=== PATIENT | female | born 1995 | race Caucasian/White ===

== ENCOUNTER 2020-12-24 16:00 | Emergency (ER) | payer OTHER ==
[~2020-12-24] VITALS: Ht 162.6 cm; Wt 72.6 kg
[~2020-12-24 16:00] MED LIST: DULCOLAX STOOL100 MG PO; SEPTRA DS TABLE1 TAB PO
[2020-12-24] MEDS ORDERED: LEVSIN/SL0.125 MG SL (16:09)
== END 2020-12-24 21:17 | disposition home or self-care (01) ==
LOC: ER 16:00
DX: K59.09 Other constipation (principal); R10.84 Generalized abdominal pain

== ENCOUNTER 2022-10-29 15:25 | Emergency (ER) | payer OTHER ==
[~2022-10-29] VITALS: Ht 162.6 cm; Wt 78.5 kg
[~2022-10-29 15:25] MED LIST changes: +LEVSIN/SL0.125 MG SL
== END 2022-10-29 22:09 | disposition home or self-care (01) ==
LOC: ER 15:25
DX: S09.8XXA Other specified injuries of head, initial encounter (principal); X58.XXXA Exposure to other specified factors, initial encounter; Y93.89 Activity, other specified; Z86.59 Personal history of other mental and behavioral disorders